=== PATIENT | female | born 1990 ===

== ENCOUNTER 2016-12-02 08:48 | Observation (INO) | payer MEDICAID ==
[2016-12-02 09:21] VITALS: BMI 40.7
[2016-12-02] MEDS ORDERED: Lidocaine 1% Inj (20ml) ONE (09:45)
[2016-12-02] MEDS ORDERED: Absorbable Gelatin Sponge Size 100 ONE (09:45)
[2016-12-02] MEDS ORDERED: Bupivacaine/Epi 0.25%-1:200,000 10 ml PF inj IJ ONE (09:45)
[2016-12-02] MEDS ORDERED: ceFAZolin IV 2 gm in Dextrose 1 GM/50 ML BAG IVPB ONE (09:46)
[2016-12-02] MEDS ORDERED: Propofol 10 mg/ml 1,000 MG/100 ML VIAL ONE ×2 (09:49)
[2016-12-02] MEDS ORDERED: Remifentanil 1 mg/3 ml Vial IV ONE ×2 (09:49→11:35)
[2016-12-02] MEDS ORDERED: Lactated Ringer's 1,000 ML IV ONE ×3 (09:55→16:00)
[2016-12-02] MEDS ORDERED: Midazolam 2 MG/2 ML VIAL ONE (09:58)
[2016-12-02] MEDS ORDERED: Propofol 10 mg/ml Inj (20 ML) ONE ×4 (09:59→12:51)
[2016-12-02] MEDS ORDERED: Succinylcholine Chloride 20 mg/ml Syr (5 ml) IV ONE (10:00)
[2016-12-02] MEDS ORDERED: Thrombin Topical 20,000 Intl Units Spray Kit TOP ONE (10:06)
[2016-12-02] MEDS: Thrombin Topical 5,000 IU Spray Kit ONE ×2 (10:44→12:20)
[2016-12-02] MEDS ORDERED: Morphine 4 MG/ML VIAL ONE ×2 (11:26→12:36)
[2016-12-02] MEDS ORDERED: Oxycodone/Acetaminophen 5/325 mg Tab PO PRN (13:23)
[2016-12-02] MEDS ORDERED: HYDROmorphone 0.5 mg/0.5 ml ISec IVP PRN (13:24)
[2016-12-02] MEDS ORDERED: HYDROmorphone 1 mg/ml ISec ONE ×2 (13:52→14:53)
--- NOTE | 2016-12-02 14:52 | PCM.SURG1 ---
Surgeon's Initial Post Op Note - Surgeon's Notes Surgeon: Dr. Gomez Toll Operator: Mirtha Mix Type of Anesthesia: General Endo Pre-Operative Diagnosis: completion of thyroidectomy Operative Findings: see operative reports Post-Operative Diagnosis: same Operation Performed: completion of thyroidectomy, left side Specimen/Specimens Removed: left thyroid Estimated Blood Loss: EBL {In ML}: 25 Blood Products Given: N/A Drains Used: No Drains Post-Op Condition: Good Date of Surgery/Procedure: 12/02/16 Time of Surgery/Procedure: 11:00
[2016-12-02] MEDS: Morphine 4 MG/ML VIAL IVP PRN (18:44)
[2016-12-02] MEDS ORDERED: Benzocaine/Menthol (Cepacol) Lozenge MT PRN (18:48)
[2016-12-02 21:00] VITALS: RESP 20
[2016-12-03] MEDS: Morphine 4 MG/ML VIAL IVP PRN ×3 (01:46→14:05)
[2016-12-03 07:19] LABS: HEMATOCRIT 35.4 % (34.0-47.0); MEAN CORPUSCULAR HEMOGLOBIN 28.6 pg (27.0-31.0); MEAN CORPUSCULAR HGB CONC 33.2 g/dL (33.0-37.0); MEAN PLATELET VOLUME 9.4 fL (7.2-11.7); RED CELL DISTRIBUTION WIDTH 13.6 % (11.5-14.5); WHITE BLOOD COUNT 11.8 K/uL (4.8-10.8)
[2016-12-03 07:26] LABS: CHLORIDE 99 mmol/L (98-107); POTASSIUM 3.7 mmol/L (3.6-5.2); SODIUM 137 mmol/L (132-148)
[2016-12-03 07:28] LABS: GFR AFRICAN-AMERICAN > 60
[2016-12-03 07:29] LABS: BLOOD UREA NITROGEN 10 mg/dL (7-17); CALCIUM 8.2 mg/dl (8.6-10.4); CARBON DIOXIDE 24 mmol/L (22-30); GLUCOSE,RANDOM 108 mg/dL (65-105); PHOSPHOROUS 4.1 mg/dL (2.5-4.5)
[2016-12-03 08:09] VITALS: O2SAT 96
--- NOTE | 2016-12-03 09:04 | OP ---
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 POSTOPERATIVE DIAGNOSES: 1. Papillary thyroid cancer of the right lobe. 2. Extensive postoperative adhesion due to the previous right lobectomy. PROCEDURES: 1. Done a completion thyroidectomy of left lobectomy. 2. Revision of the scar 8 x 2 cm size. 3. Intraoperative nerve monitoring. 4. Adhesiolysis. SURGEON: Torrey Gomez MD. FERN PICKER: HALLIE Manley. Mirtha was presented to the end of the procedure, helped in the prepping and draping during the dissection and closure of the wounds. SECOND FERN PICKER: Cale Cheek, PGY-1 resident. ANESTHESIA: General endotracheal tube anesthesia. ESTIMATED BLOOD LOSS: Around 20 mL. DRAIN: 15 [place] Zafar drain was placed. COMPLICATIONS: None. INTRAOPERATIVE FINDINGS: The patient had normal looking the left thyroid lobe. The patient had extensive postoperative adhesion in the midline as well as on the left side and it involved strap muscles and the sternocleidomastoid muscle as well as the platysma. INTRAOPERATIVE STEPS: This is a 26-year-old female who was diagnosed with papillary thyroid cancer after right thyroid lobectomy and the patient was consented for the completion thyroidectomy. Brought to the OR, placed supine on the operating table. After induction of the anesthesia, the patient was placed in the chair position, a shoulder roll was placed and the neck was extended and the neck and upper chest was prepped and draped. Revision of the old scar was done and after widening the scar, upper and lower subplatysmal flap was created and patient found to have extensive adhesion on the left side and the dissection was carried down to find the strap muscles in the midline and the strap muscle was also from the trachea and extensive adhesiolysis was done. The sternocleidomastoid were also fixed to the strap muscles. After proper dissection the thyroid lobe was identified and the strap muscles were divided, the thyroid lobe was retracted medially. The superior pole dissection was done and the superior pole was ligated in the different pedicles. The inferior pole vessel was also ligated and now the thyroid was moved medially and the recurrent laryngeal nerve was identified, the inferior thyroid artery and the middle thyroid vein were both ligated and the left thyroid lobe was dissected free from the trachea and the inferior and superior left parathyroid gland was dissected free from the thyroid lobe. After proper dissection the thyroid lobe was sent off the table for the pathology. Intraoperative monitoring was done. Recurrent laryngeal nerve was normal and after that the 15 [place] Zafar tube was placed. The strap muscles were approximated with 0 Vicryl interrupted suture, the platysma with 2-0 Vicryl, skin with a 4-0 Monocryl and a dry sterile dressing was applied. The patient tolerated the procedure well. Count of instrument was correct. There was no apparent complication. The patient was extubated in the OR, sent to the postanesthesia care unit in stable condition. Torrey Gomez MD cc: [id number] TT: 12/03/2016 09:03:11 jn MTDD
[2016-12-03] MEDS ORDERED: Enoxaparin 40 mg Syringe SC SCH (10:00)
[2016-12-03] MEDS ORDERED: Pneumococcal 23-Valent Vaccine IM ONE (10:00)
[2016-12-03 16:18] VITALS: BP 119/79; PULSE 95; TEMP 99.2
--- NOTE | 2016-12-03 17:24 | CP.PCM.DIS ---
Provider - Provider Date of Admission: 12/02/16 13:28 Attending physician: Torrey Gomez MD Time Spent in preparation of Discharge (in minutes): 30 Diagnosis - Discharge Diagnosis (1) S/P partial thyroidectomy Status: Acute Priority: High Onset Date: 05/27/16 Hospital Course - Lab Results Lab Results: Most Recent Lab Values WBC 11.8 K/uL (4.8-10.8) H 12/03/16 07:01 RBC 4.12 Mil/uL (3.80-5.20) 12/03/16 07:01 Hgb 11.8 g/dL (11.0-16.0) 12/03/16 07:01 Hct 35.4 % (34.0-47.0) 12/03/16 07:01 MCV 86.0 fL (81.0-99.0) 12/03/16 07:01 MCH 28.6 pg (27.0-31.0) 12/03/16 07:01 MCHC 33.2 g/dL (33.0-37.0) 12/03/16 07:01 RDW 13.6 % (11.5-14.5) 12/03/16 07:01 Plt Count 318 K/uL (130-400) 12/03/16 07:01 MPV 9.4 fL (7.2-11.7) 12/03/16 07:01 Sodium 137 mmol/L (132-148) 12/03/16 07:01 Potassium 3.7 mmol/L (3.6-5.2) 12/03/16 07:01 Chloride 99 mmol/L (98-107) 12/03/16 07:01 Carbon Dioxide 24 mmol/L (22-30) 12/03/16 07:01 Anion Gap 17 (10-20) 12/03/16 07:01 BUN 10 mg/dL (7-17) 12/03/16 07:01 Creatinine 0.5 MG/DL (0.7-1.2) L 12/03/16 07:01 Est GFR ( Amer) > 60 12/03/16 07:01 Est GFR (Non-Af Amer) > 60 12/03/16 07:01 Random Glucose 108 mg/dL (65-105) H 12/03/16 07:01 Calcium 8.2 mg/dl (8.6-10.4) L 12/03/16 07:01 Phosphorus 4.1 mg/dL (2.5-4.5) 12/03/16 07:01 Magnesium 2.0 mg/dL (1.6-2.3) 12/03/16 07:01 - Hospital Course Hospital Course: 26F presented to [facility] for thyroidectomy she did well post op and was able to be discharged on POD#1 after removing the mayelin drain. Discharge Exam - Head Exam Head Exam: ATRAUMATIC, NORMOCEPHALIC - Eye Exam Eye Exam: absent: Scleral icterus - Neck Exam Neck exam: Tenderness (at incision) Additional comments: Incision Dry and intact, drain removed - Respiratory Exam Respiratory Exam: NORMAL BREATHING PATTERN. absent: Respiratory Distress - Cardiovascular Exam Cardiovascular Exam: RRR, +S1, +S2 - GI/Abdominal Exam GI & Abdominal Exam: Soft. absent: Distended, Tenderness - Extremities Exam Extremities exam: normal capillary refill - Neurological Exam Neurological exam: Alert, Oriented x3 - Skin Skin Exam: Dry, Warm Discharge Plan - Follow Up Plan Condition: GOOD Disposition: HOME/ ROUTINE Additional Instructions: Follow up in [address] Gomez Regular diet. Call for fever more than 101 or pain uncontrolled by meds Can shower in 4 more days without covering dressing. Otherwise cover dressing for shower. Rx in chart.
== END 2016-12-03 18:45 | disposition home or self-care (01) ==
LOC: C.SDS 08:48 → C.6T 13:28
PROVIDERS: ADMIT Surgery Surgical Critical Care; ATTEND Surgery Surgical Critical Care
DX: C73 Malignant neoplasm of thyroid gland (principal)
CPT/HCPCS: 36415; 60240; 80048; 83735; 84100; 85027; 88305; 88307; 96365; 96372; 96375; 96376; G0378; J0690; J1170; J1650; J2001; J2250; J2270; J2405; J2704; J3010; J7120

== ENCOUNTER 2016-12-09 20:51 | Emergency (ER) | payer MEDICAID ==
[2016-12-09 20:52] VITALS: BMI 40.7
[2016-12-09 21:12] VITALS: TEMP 98.2
[2016-12-09] MEDS ORDERED: Sodium Chloride 0.9% 1,000 ML IV ONE (22:04)
[2016-12-09] MEDS ORDERED: Sodium Chloride 0.9% 1,000 ML ONE (22:41)
[2016-12-09 22:48] LABS: BASO # 0.1 K/uL (0.0-0.2); BASO % 0.9 % (0.0-2.0); EOS # 0.4 K/uL (0.0-0.7); EOS % 2.6 % (0.0-4.0); HEMATOCRIT 38.5 % (34.0-47.0); LYMPH # 3.7 K/uL (1.0-4.3); LYMPH % 26.5 % (20.0-40.0); MEAN CELL VOLUME 85.2 fL (81.0-99.0); MEAN CORPUSCULAR HEMOGLOBIN 28.7 pg (27.0-31.0); MEAN CORPUSCULAR HGB CONC 33.8 g/dL (33.0-37.0); MEAN PLATELET VOLUME 8.4 fL (7.2-11.7); MONO # 0.9 K/uL (0.0-0.8); MONO % 6.6 % (0.0-10.0); NRBC % 0.1 % (0.0-2.0); RED CELL DISTRIBUTION WIDTH 13.2 % (11.5-14.5)
--- NOTE | 2016-12-09 22:49 | C.PDOC ---
History Of Present Illness Patient is a 26 year old female who presents to the ER status post thyroidectomy on 12/[address] Gomez, for a complaint of pain and swelling to the surgical site. Patient states she feels more swelling then normal today. Patient has consumed 20 the percocet from post-op prescription. Denies fever or discharge from wound. Time Seen by Provider: 12/09/16 21:39 Chief Complaint (Nursing): Wound Check History Per: Patient History/Exam Limitations: no limitations Onset/Duration Of Symptoms: Hrs Current Symptoms Are (Timing): Still Present Location Of Injury: Anterior: Neck (Surgical site) Quality Of Symptoms: Painful, Swollen Recent travel outside of the [place]: No Past Medical History Reviewed: Historical Data, Nursing Documentation, Vital Signs Vital Signs: Last Vital Signs Temp 98.2 F 12/09/16 21:07 Pulse 93 H 12/10/16 00:17 Resp 18 12/10/16 00:17 BP 128/86 12/10/16 00:17 Pulse Ox 98 12/10/16 01:00 - Medical History PMH: Asthma (CHILDHOOD NO LONGER) - [facility] Procedures RESECTION OF RIGHT THYROID GLAND LOBE, OPEN APPROACH (05/27/16) Family History: States: Unknown Family Hx - Social History Hx Alcohol Use: No Hx Substance Use: No - Immunization History Hx Tetanus Toxoid Vaccination: No Hx Influenza Vaccination: No Hx Pneumococcal Vaccination: No Review Of Systems Constitutional: Negative for: Fever ENT: Positive for: Other (Neck swelling/pain at surgical site. No surgical site discharge.) Physical Exam - Physical Exam Appears: Well, Non-toxic Skin: Normal Color, Warm, Dry Head: Atraumatic, Normacephalic Oral Mucosa: Moist Throat: Normal, No Erythema, No Exudate Neck: Other (Lateral thyroidectomy scar. Site dry and intact, steri strips keeping wound closed. Mild left sided tenderness, no fluctuance.) Chest: Symmetrical, No Tenderness Cardiovascular: Rhythm Regular, No Murmur Respiratory: Normal Breath Sounds, No Rales, No Rhonchi, No Wheezing Gastrointestinal/Abdominal: Soft, No Tenderness Neurological/Psych: Oriented x3, Normal Speech, Normal Cognition Additional Physical Exam Comments: Due to obese neck, patient was difficult to examine. ED Course And Treatment - Laboratory Results Result Diagrams: 12/09/16 22:42 12/09/16 22:42 Lab Interpretation: Abnormal (mild leukocytosis, UA neg.) Urine POC: Negative O2 Sat by Pulse Oximetry: 98 - CT Scan/US CT of neck w/ IV contrast Other Rad Studies (CT/US): Read By Radiologist, Radiology Report Reviewed CT/US Interpretation: IMPRESSION: - Small areas of hyperdensity in the left thyroidectomy bed. Findings could represent residual. thyroid tissue, although small foci of hemorrhage are difficult to exclude. No evidence of a. large soft tissue hematoma. Recommend clinical correlation. - Findings suspicious for a small 2 x 1 cm fluid collection in the left anterior neck soft tissues,. abutting the thyroidectomy bed anteriorly. This could represent a seroma or resolving. hematoma. An infected fluid collection is not entirely excluded. Recommend clinical. correlation. Progress Note: ice, ivf, toradol. Discussed with Dr. Gomez at 10, agrees to CT and labs. Discussed with residential sales executive at 11, will evaluate. Reevaluation Time: 00:29 Reassessment Condition: Improved Medical Decision Making Medical Decision Making: post-op STS, no acute infection [id number] mild leukocytosis prob normal post-op Disposition Doctor Will See Patient In The: Office Counseled Patient/Family Regarding: Studies Performed, Diagnosis - Disposition Referrals: Torrey Gomez MD [Staff Provider] - Disposition: HOME/ ROUTINE Disposition Time: 01:00 Condition: GOOD Additional Instructions: ice packs 1/2 hour per hour, nothing hot Leave bandages in place until office visit Monday Motrin 400-600 mg every 6 hours as needed Pepcid 20 mg @ night to prevent stomach irritation from the Motrin Tramadol 50 mg (narcotic pain reliever) 1 tab every 4-6 hours as needed for excessive pain Follow-up with Dr. Coulter in his office on Monday. Call for an appointment. Prescriptions: Docusate [Colace] 100 mg PO BID #30 cap Famotidine [Pepcid] 20 mg PO HS #30 tab Ibuprofen [Motrin] 600 mg PO Q6H PRN #20 tab PRN Reason: Pain, Moderate (4-7) traMADol [Ultram] 50 mg PO Q6H PRN #20 tab PRN Reason: pain Instructions: Chronic Wound Care (ED) - Clinical Impression Clinical Impression: Encounter for postoperative wound check - Scribe Statement The provider has reviewed the documentation as recorded by the Scribe Bne Frye All medical record entries made by the Nenitaibyuli were at my direction and personally dictated by me. I have reviewed the chart and agree that the record accurately reflects my personal performance of the history, physical exam, medical decision making, and the department course for this patient. I have also personally directed, reviewed, and agree with the discharge instructions and disposition.
[2016-12-09 23:06] LABS: CHLORIDE 97 mmol/L (98-107); POTASSIUM 4.1 mmol/L (3.6-5.2); SODIUM 139 mmol/L (132-148)
[2016-12-09 23:08] LABS: GFR AFRICAN-AMERICAN > 60; RBC URINE 3 /hpf (0-3); URINE BILIRUBIN NEGATIVE (NEGATIVE); URINE BLOOD NEGATIVE (NEGATIVE); URINE COLOR Yellow (YELLOW); URINE GLUCOSE (UA) NORMAL (Normal); URINE KETONE NEGATIVE (NEGATIVE); URINE LEUKOCYTE ESTERASE NEG Leu/uL (Negative); URINE PROTEIN NEGATIVE (NEGATIVE); URINE UROBILINOGEN NORMAL mg/dL (0.2-1.0)
[2016-12-09 23:09] LABS: ALB/GLOB RATIO 1.3 (1.0-2.1); ALKALINE PHOSPHATASE 70 U/L (38-126); ALT/SGPT 21 U/L (9-52); AST/SGOT 17 U/L (14-36); BILIRUBIN,TOTAL 0.4 mg/dL (0.2-1.3); BLOOD UREA NITROGEN 12 mg/dL (7-17); CARBON DIOXIDE 26 mmol/L (22-30); GLUCOSE,RANDOM 100 mg/dL (65-105); TOTAL PROTEIN 7.7 g/dL (6.3-8.3)
[2016-12-09 23:10] LABS: CALCIUM 8.7 mg/dl (8.6-10.4)
[2016-12-09] MEDS ORDERED: Iohexol 350mg/ml 100 ML ONE (23:42)
[2016-12-10 00:17] VITALS: BP 128/86; PULSE 93; RESP 18
[2016-12-10 00:32] VITALS: O2SAT 98
--- NOTE | 2016-12-10 00:58 | CT ---
EXAM: CT Neck With Intravenous Contrast CLINICAL HISTORY: 26 years old, female; Pain; Neck pain and painful swallowing; Prior surgery; Surgery type: Lt, side thyroidectomy; Additional info: L-side thyroidectomy 12/02, + sts, ? phlegmon TECHNIQUE: Axial computed tomography images of the neck with intravenous contrast. This CT exam was performed using one or more of the following dose reduction techniques: automated exposure control, adjustment of the mA and/or kV according to patient size, and/or use of iterative reconstruction technique. Coronal and sagittal reformatted images were created and reviewed. CONTRAST: 100 mL of [id number] administered intravenously. EXAM DATE/TIME: 12/09/2016 9:57 PM COMPARISON: No relevant prior studies available. FINDINGS: NASOPHARYNX: No acute abnormality of the adenoidal/nasopharyngeal tonsils identified. OROPHARYNX: No acute abnormality of the bilateral palatine tonsils identified. No acute abnormality of the tongue base identified. HYPOPHARYNX: No acute abnormality of the vallecula or piriform sinuses identified. LARYNX: No acute abnormality of the epiglottis identified. No acute abnormality of the vocal cords identified. TRACHEA: Visualized portions of the trachea appear patent. RETROPHARYNGEAL SPACE: No evidence of prevertebral/retropharyngeal fluid or fluid collection. SUBMANDIBULAR/PAROTID GLANDS: No acute abnormality of the parotid or submandibular glands identified. THYROID: Findings compatible with the given history of recent left thyroidectomy. There are multiple surgical clips in the left thyroidectomy bed. There are small areas of high density seen in the left thyroidectomy bed, abutting the surgical clips, measuring up to 1 cm in size, image 56/series 2. BONES/JOINTS: No acute fractures or other acute bony abnormality noted. SOFT TISSUES: Best seen on image 59 of series 2, there is a subtle 2 x 1 cm focal area of low density in the deep soft tissues of the anterior neck, abutting the thyroidectomy bed anteriorly. This has an irregular shape, and is suspicious for a small fluid collection. It does not contain gas. Soft tissue swelling and diffuse subcutaneous fat infiltration are seen in the nearby anterior neck soft tissues, at the level of the thyroidectomy bed. There is no evidence of diffuse soft tissue gas. VASCULATURE: No acute abnormality of the major neck vessels is seen. . LYMPH NODES: No evidence of diffuse lymphadenopathy. LUNG APICES: Small left pleural effusion is seen, in the left lung apex. IMPRESSION: - Small areas of hyperdensity in the left thyroidectomy bed. Findings could represent residual thyroid tissue, although small foci of hemorrhage are difficult to exclude. No evidence of a large soft tissue hematoma. Recommend clinical correlation. - Findings suspicious for a small 2 x 1 cm fluid collection in the left anterior neck soft tissues, abutting the thyroidectomy bed anteriorly. This could represent a seroma or resolving hematoma. An infected fluid collection is not entirely excluded. Recommend clinical correlation. - Small left pleural effusion. - See above for remaining findings.
== END 2016-12-10 01:14 | disposition home or self-care (01) ==
LOC: C.ER 20:51
DX: Z48.01 Encounter for change or removal of surgical wound dressing (principal)
CPT/HCPCS: 70491; 80053; 81001; 84703; 85025; 96361; 96374; 99285; J1885; J7040; Q9967

== ENCOUNTER 2017-01-27 13:01 | Emergency (ER) | payer MEDICAID ==
[2017-01-27 13:01] VITALS: BMI 40.7
[2017-01-27 13:17] VITALS: TEMP 98.4
[2017-01-27 14:26] LABS: BASO # 0.1 K/uL (0.0-0.2); BASO % 0.9 % (0.0-2.0); EOS # 0.2 K/uL (0.0-0.7); EOS % 2.1 % (0.0-4.0); HEMATOCRIT 37.9 % (34.0-47.0); LYMPH # 2.4 K/uL (1.0-4.3); LYMPH % 27.7 % (20.0-40.0); MEAN CELL VOLUME 86.5 fL (81.0-99.0); MEAN CORPUSCULAR HEMOGLOBIN 28.4 pg (27.0-31.0); MEAN CORPUSCULAR HGB CONC 32.8 g/dL (33.0-37.0); MEAN PLATELET VOLUME 8.9 fL (7.2-11.7); MONO # 0.6 K/uL (0.0-0.8); MONO % 6.8 % (0.0-10.0); NRBC % 0.1 % (0.0-2.0); RED CELL DISTRIBUTION WIDTH 13.7 % (11.5-14.5); WHITE BLOOD COUNT 8.8 K/uL (4.8-10.8)
[2017-01-27 14:42] LABS: CHLORIDE 102 mmol/L (98-107); SODIUM 137 mmol/L (132-148)
[2017-01-27 14:43] LABS: POTASSIUM 4.1 mmol/L (3.6-5.2)
[2017-01-27 14:45] LABS: ALB/GLOB RATIO 1.2 (1.0-2.1); ALKALINE PHOSPHATASE 67 U/L (38-126); ALT/SGPT 20 U/L (9-52); AST/SGOT 19 U/L (14-36); BILIRUBIN,TOTAL 0.6 mg/dL (0.2-1.3); BLOOD UREA NITROGEN 9 mg/dL (7-17); CALCIUM 9.1 mg/dl (8.6-10.4); CARBON DIOXIDE 25 mmol/L (22-30); GFR AFRICAN-AMERICAN > 60; GLUCOSE,RANDOM 89 mg/dL (65-105); TOTAL PROTEIN 7.5 g/dL (6.3-8.3)
[2017-01-27 15:15] LABS: THYROID STIMULATING HORMONE 1.44 mIU/L (0.46-4.68)
--- NOTE | 2017-01-27 15:35 | C.PDOC ---
History Of Present Illness 26 year old female presents to ED with complaints of numbness and tingling sensation to bilateral hands for 1 month and pain when she clenches fists. Additionally patient complains of itchy rash that started on her back and has no spread to chest and neck. Patient believes the cause of her symptoms is increase in her levothyroxine medication to 200mcg. She denies any injury, weakness, fatigue, SOB, chest pain, headache or dizziness. Time Seen by Provider: 01/27/17 13:32 Chief Complaint (Nursing): Upper Extremity Problem/Injury History Per: Patient History/Exam Limitations: no limitations Onset/Duration Of Symptoms: Days Current Symptoms Are (Timing): Still Present Severity: Mild Recent travel outside of the [place]: No Past Medical History Reviewed: Historical Data, Nursing Documentation, Vital Signs Vital Signs: Last Vital Signs Temp 98.4 F 01/27/17 13:15 Pulse 72 01/27/17 15:47 Resp 18 01/27/17 15:47 BP 128/72 01/27/17 15:47 Pulse Ox 99 01/27/17 16:24 - Medical History PMH: Asthma (CHILDHOOD NO LONGER), Hypothyroidism, Malignancy (Thyroid) - [facility] Procedures RESECTION OF RIGHT THYROID GLAND LOBE, OPEN APPROACH (05/27/16) Family History: States: Unknown Family Hx - Social History Hx Alcohol Use: No Hx Substance Use: No - Immunization History Hx Tetanus Toxoid Vaccination: No Hx Influenza Vaccination: No Hx Pneumococcal Vaccination: No Review Of Systems Constitutional: Negative for: Fever, Chills, Weakness Cardiovascular: Negative for: Chest Pain Respiratory: Negative for: Shortness of Breath Skin: Positive for: Rash (itchy rash to back, chest and neck) Neurological: Positive for: Numbness (bilateral hands). Negative for: Headache , Dizziness Physical Exam - Physical Exam Appears: Non-toxic, No Acute Distress Skin: Warm, Dry, Other (scaly annular lesions on erythematous base to left anterior neck, left chest wall and right midback) Head: Atraumatic, Normacephalic Eye(s): bilateral: Normal Inspection, PERRL, EOMI Nose: Normal Oral Mucosa: Moist Neck: Normal, Normal ROM, Supple Chest: Symmetrical Cardiovascular: Rhythm Regular, No Murmur Respiratory: Normal Breath Sounds, No Rales, No Rhonchi, No Wheezing Gastrointestinal/Abdominal: Normal Exam, Soft, No Tenderness Extremity: Bilateral: Atraumatic, Normal Color And Temperature, Normal ROM Neurological/Psych: Oriented x3, Normal Speech, Normal Motor, Normal Sensation Gait: Steady ED Course And Treatment - Laboratory Results Result Diagrams: 01/27/17 14:21 01/27/17 14:21 Lab Interpretation: No Acute Changes O2 Sat by Pulse Oximetry: 99 (room air) Pulse Ox Interpretation: Normal Medical Decision Making Medical Decision Making: Impression: numbness and tingling to hands, rash to back, neck and chest Prior records reviewed patient had thyroidectomy on 12/[address] Gomez rash is consistent with tinea Labs ordered to check for thyroid function and any electrolyte abnormality Labs reviewed and unremarkable, no leukocytosis or electrolyte abnormality, thyroid normal Patient reevaluated and remains well and in no acute distress. Patient advised to follow up with telephone interviewer and PCP. Will prescribe cream for rash. Disposition Counseled Patient/Family Regarding: Diagnosis, Need For Followup, Rx Given - Disposition Referrals: Jesús Torres MD [Staff Provider] - Disposition: HOME/ ROUTINE Disposition Time: 15:32 Condition: STABLE Additional Instructions: Apply cream twice daily to rash for 1-2 weeks Continue with your medication as prescribed for thyroid. Your lab results today were normal, and thyroid function is normal Please follow up with your primary doctor or telephone interviewer Prescriptions: Ketoconazole 2% Cr [Nizoral] 15 applic EXT BID #1 tube Instructions: Tinea Corporis (ED), Paresthesia (ED) - POA Present On Arrival: None - Clinical Impression Clinical Impression: Paresthesia of upper extremity, Normal thyroid function test, Tinea corporis - PA / CUP MACHINE OPERATOR / Resident Statement MD/DO has reviewed & agrees with the documentation as recorded. - Scribe Statement The provider has reviewed the documentation as recorded by the Lori Saleh All medical record entries made by the Lori were at my direction and personally dictated by me. I have reviewed the chart and agree that the record accurately reflects my personal performance of the history, physical exam, medical decision making, and the department course for this patient. I have also personally directed, reviewed, and agree with the discharge instructions and disposition.
[2017-01-27 15:47] VITALS: BP 128/72; PULSE 72; RESP 18
[2017-01-27 15:59] VITALS: O2SAT 99
== END 2017-01-27 15:48 | disposition home or self-care (01) ==
LOC: C.ER 13:01
DX: R20.9 Unspecified disturbances of skin sensation (principal); B35.4 Tinea corporis

== ENCOUNTER 2017-05-02 08:57 | Emergency (ER) | payer MEDICAID ==
[2017-05-02 08:57] VITALS: BMI 40.7
[2017-05-02 09:04] VITALS: TEMP 97.9
--- NOTE | 2017-05-02 11:11 | C.PDOC ---
History Of Present Illness 26 y/o female presents to ED with complaints of erythema patches on right and left leg since 04/26/17. Patient states patches started as small and on right leg but are now on both legs. Patient denies recent travel, fever, chills, or any other complaints at this time. Time Seen by Provider: 05/02/17 09:47 Chief Complaint (Nursing): Abnormal Skin Integrity History Per: Patient History/Exam Limitations: no limitations Onset/Duration Of Symptoms: Days Current Symptoms Are (Timing): Still Present Location Of Injury: Right: Leg, Left: Leg Past Medical History Reviewed: Historical Data, Nursing Documentation, Vital Signs Vital Signs: Last Vital Signs Temp 97.9 F 05/02/17 09:02 Pulse 69 05/02/17 11:25 Resp 17 05/02/17 11:25 BP 124/72 05/02/17 11:25 Pulse Ox 99 05/02/17 11:56 - Medical History PMH: Asthma (CHILDHOOD NO LONGER), Hypothyroidism, Malignancy (Thyroid) Denies: Chronic Kidney Disease Surgical History: No Surg Hx - [facility] Procedures RESECTION OF RIGHT THYROID GLAND LOBE, OPEN APPROACH (05/27/16) Family History: States: Unknown Family Hx - Social History Hx Alcohol Use: No Hx Substance Use: No - Immunization History Hx Tetanus Toxoid Vaccination: No Hx Influenza Vaccination: No Hx Pneumococcal Vaccination: No Review Of Systems Except As Marked, All Systems Reviewed And Found Negative. Constitutional: Negative for: Fever, Chills Gastrointestinal: Negative for: Nausea, Vomiting Skin: Positive for: Rash Physical Exam - Physical Exam Appears: Non-toxic, No Acute Distress Skin: Warm, Dry, Rash (Erythema and Large patches with cellulite patches around on both legs) Head: Atraumatic, Normacephalic Eye(s): bilateral: Normal Inspection Oral Mucosa: Moist Neck: Normal ROM, Supple Chest: Symmetrical Cardiovascular: Rhythm Regular, No Murmur Respiratory: Normal Breath Sounds, No Rales, No Rhonchi, No Wheezing Neurological/Psych: Oriented x3 ED Course And Treatment O2 Sat by Pulse Oximetry: 99 (RA) Pulse Ox Interpretation: Normal Disposition - Disposition Disposition: HOME/ ROUTINE Disposition Time: 11:15 Condition: STABLE Additional Instructions: Follow up with Machine Set Up Operator within 1-2 days. Return to ED if feel worse. Prescriptions: DiphenhydrAMINE [Benadryl] 25 mg PO .Q4-6 H #30 cap Clotrimazole/Betamethasone [Lotrisone] 1 appl EXT BID #3 tube Famotidine [Pepcid] 20 mg PO BID #20 tab Instructions: Acute Rash (ED) Forms: [facility] ([place]) - Clinical Impression Clinical Impression: Rash - PA / LOADING SUPERVISOR / Resident Statement MD/DO has reviewed & agrees with the documentation as recorded. - Scribe Statement The provider has reviewed the documentation as recorded by the Nenitaibyuli Barcenas All medical record entries made by the Lori were at my direction and personally dictated by me. I have reviewed the chart and agree that the record accurately reflects my personal performance of the history, physical exam, medical decision making, and the department course for this patient. I have also personally directed, reviewed, and agree with the discharge instructions and disposition.
[2017-05-02 11:26] VITALS: BP 124/72; PULSE 69; RESP 17
[2017-05-02 11:45] VITALS: O2SAT 99
== END 2017-05-02 11:30 | disposition home or self-care (01) ==
LOC: C.ER 08:57
DX: R21 Rash and other nonspecific skin eruption (principal)

== ENCOUNTER 2018-07-05 18:58 | Emergency (ER) | payer MEDICAID, OTHER ==
[2018-07-05 18:59] VITALS: BMI 40.7
--- NOTE | 2018-07-05 20:45 | C.PDOC ---
History Of Present Illness 27 y/o female presents to the ER complaining of productive cough, sore throat, and chest congestion which has been present for the past 2.5 weeks. Patient states that she was evaluated by her PMD. Patient reports that she was prescribed Amoxicillin for throat infection and cough syrup.She notes that she took the medications without relief. Denies having fever, chills, and SOB. Time Seen by Provider: 07/05/18 19:44 Chief Complaint (Nursing): Cough, Cold, Congestion History Per: Patient History/Exam Limitations: no limitations Onset/Duration Of Symptoms: Days Current Symptoms Are (Timing): Still Present Severity: Moderate Past Medical History Reviewed: Historical Data, Nursing Documentation, Vital Signs Vital Signs: Last Vital Signs Temp Pulse 110 H 07/05/18 19:10 Resp 20 07/05/18 19:10 BP 141/101 H 07/05/18 19:10 Pulse Ox 100 07/05/18 19:10 - Medical History PMH: Asthma (CHILDHOOD NO LONGER), HTN, Hypothyroidism, Malignancy (Thyroid) Denies: Chronic Kidney Disease Other Surgeries: Hx of surgeries - [facility] Procedures RESECTION OF RIGHT THYROID GLAND LOBE, OPEN APPROACH (05/27/16) Family History: States: No Known Family Hx - Social History Hx Alcohol Use: No Hx Substance Use: No - Immunization History Hx Tetanus Toxoid Vaccination: No Hx Influenza Vaccination: No Hx Pneumococcal Vaccination: No Review Of Systems Except As Marked, All Systems Reviewed And Found Negative. Constitutional: Negative for: Fever, Chills ENT: Positive for: Throat Pain Cardiovascular: Positive for: Other (chest congestion). Negative for: Chest Pain Respiratory: Positive for: Cough. Negative for: Shortness of Breath Gastrointestinal: Negative for: Nausea, Vomiting Physical Exam - Physical Exam Appears: Non-toxic, No Acute Distress Skin: Normal Color, Warm, Dry Head: Atraumatic, Normacephalic Eye(s): bilateral: Normal Inspection Ear(s): Bilateral: Normal Nose: Normal Oral Mucosa: Moist Throat: Normal, No Erythema, No Exudate Neck: Supple Chest: Symmetrical Cardiovascular: Rhythm Regular Respiratory: Normal Breath Sounds, No Rales, No Rhonchi, No Wheezing Neurological/Psych: Oriented x3, Normal Speech ED Course And Treatment O2 Sat by Pulse Oximetry: 100 (RA) Pulse Ox Interpretation: Normal Progress Note: Pt is in no resp distress, VSS. CXR wnl and pt advised to follow up with PMD Medical Decision Making Medical Decision Making: Plan: --CXR Disposition - Disposition Referrals: Jesús Torres MD [Staff Provider] - Disposition: HOME/ ROUTINE Disposition Time: 03:44 Condition: GOOD Additional Instructions: Increase PO fluids Take medications as directed Return to ER if worse Prescriptions: Benzonatate [Tessalon Perles] 200 mg PO TID #14 sgl Cetirizine HCl [Zyrtec] 10 mg PO DAILY #14 capsule Instructions: Upper Respiratory Infection (ED) - Clinical Impression Clinical Impression: Upper respiratory infection - PA / [employer] / Resident Statement MD/DO has reviewed & agrees with the documentation as recorded. - Scribe Statement The provider has reviewed the documentation as recorded by the Scribe Madeleine Rod Provider Attestation All medical record entries made by the Scribe were at my direction and personally dictated by me. I have reviewed the chart and agree that the record accurately reflects my personal performance of the history, physical exam, medical decision making, and the department course for this patient. I have also personally directed, reviewed, and agree with the discharge instructions and disposition.
[2018-07-05 21:03] VITALS: BP 136/92; PULSE 95; RESP 18; TEMP 98
[2018-07-06 03:44] VITALS: O2SAT 100
--- NOTE | 2018-07-06 10:26 | RAD ---
Date of service: 07/05/2018 HISTORY: chest congestion, cough COMPARISON: Comparison chest 10/20/2016. TECHNIQUE: Chest PA and lateral FINDINGS: LUNGS: No active pulmonary disease. PLEURA: No significant pleural effusion identified. No pneumothorax apparent. CARDIOVASCULAR: No aortic atherosclerotic calcification present. Normal cardiac size. No pulmonary vascular congestion. OSSEOUS STRUCTURES: No significant abnormalities. VISUALIZED UPPER ABDOMEN: Normal. OTHER FINDINGS: None. IMPRESSION: No active disease.
== END 2018-07-05 21:03 | disposition home or self-care (01) ==
LOC: C.ER 18:58
DX: J06.9 Acute upper respiratory infection, unspecified (principal)

== ENCOUNTER 2018-09-12 13:59 | Emergency (ER) | payer OTHER ==
[2018-09-12 13:59] VITALS: BMI 40.7
[2018-09-12 14:26] VITALS: O2SAT 100
[2018-09-12 15:14] LABS: BASO # 0.1 K/uL (0.0-0.2); BASO % 1.1 % (0.0-2.0); EOS # 0.2 K/uL (0.0-0.7); EOS % 2.1 % (0.0-4.0); LYMPH # 2.7 K/uL (1.0-4.3); LYMPH % 29.1 % (20.0-40.0); MEAN CELL VOLUME 86.7 fL (81.0-99.0); MEAN CORPUSCULAR HEMOGLOBIN 29.1 pg (27.0-31.0); MEAN CORPUSCULAR HGB CONC 33.6 g/dL (33.0-37.0); MEAN PLATELET VOLUME 8.8 fL (7.2-11.7); MONO # 0.6 K/uL (0.0-0.8); MONO % 6.8 % (0.0-10.0); NEUT # 5.7 K/uL (1.8-7.0); NEUT % 60.9 % (50.0-75.0); NRBC % 0.1 % (0.0-2.0); RBC 4.46 Mil/uL (3.80-5.20); RED CELL DISTRIBUTION WIDTH 14.1 % (11.5-14.5); WHITE BLOOD COUNT 9.3 K/uL (4.8-10.8)
[2018-09-12 15:24] LABS: SQUAMOUS EPITHIAL 7 /hpf (0-5); URINE BACTERIA RARE (<OCC); URINE BILIRUBIN NEGATIVE (NEGATIVE); URINE BLOOD 3+ (NEGATIVE); URINE CLARITY Hazy (Clear); URINE COLOR Yellow (YELLOW); URINE GLUCOSE (UA) NORMAL (Normal); URINE LEUKOCYTE ESTERASE NEG Leu/uL (Negative); URINE PROTEIN NEGATIVE (NEGATIVE)
--- NOTE | 2018-09-12 15:35 | C.PDOC ---
History Of Present Illness 28 y/o female,w/PMhx of ovarian cysts, presents to the ER complaining of cramping LLQ abdominal pain which has been present for the past 2-3 days. Patient states that the pain radiates to the back. Patient reports that she has some vaginal spotting.She notes that she has history of irregular periods and her LMP was in July 2018. She took 2 tests at home, 1 test was positive and 1 test was negative.Denies having fever, chills, nausea,vomiting, dysuria, and hematuria. Time Seen by Provider: 09/12/18 14:42 Chief Complaint (Nursing): Female Genitourinary History Per: Patient History/Exam Limitations: no limitations Onset/Duration Of Symptoms: Days Current Symptoms Are (Timing): Still Present Severity: Moderate Past Medical History Reviewed: Historical Data, Nursing Documentation, Vital Signs Vital Signs: Last Vital Signs Temp 98.2 F 09/12/18 14:22 Pulse 79 09/12/18 14:22 Resp 18 09/12/18 14:22 BP 139/97 H 09/12/18 14:22 Pulse Ox 100 09/12/18 14:22 - Medical History PMH: Asthma (CHILDHOOD NO LONGER), HTN, Hypothyroidism, Malignancy (Thyroid) Denies: Chronic Kidney Disease Other Surgeries: Hx of surgeries - [facility] Procedures RESECTION OF RIGHT THYROID GLAND LOBE, OPEN APPROACH (05/27/16) Family History: States: No Known Family Hx - Social History Hx Alcohol Use: No Hx Substance Use: No - Immunization History Hx Tetanus Toxoid Vaccination: No Hx Influenza Vaccination: No Hx Pneumococcal Vaccination: No Review Of Systems Constitutional: Negative for: Fever, Chills Gastrointestinal: Positive for: Abdominal Pain. Negative for: Nausea, Vomiting Genitourinary: Positive for: Vaginal Bleeding. Negative for: Dysuria, Hematuria Physical Exam - Physical Exam Appears: Non-toxic, No Acute Distress Skin: Normal Color, Warm, Dry Head: Atraumatic, Normacephalic Eye(s): bilateral: Normal Inspection Nose: Normal Oral Mucosa: Moist Neck: Supple Chest: Symmetrical Cardiovascular: Rhythm Regular Respiratory: Normal Breath Sounds, No Rales, No Rhonchi, No Wheezing Gastrointestinal/Abdominal: Normal Exam, Soft, No Tenderness, No Guarding, No Rebound Neurological/Psych: Oriented x3, Normal Speech ED Course And Treatment - Laboratory Results Result Diagrams: 09/12/18 15:10 09/12/18 15:10 Lab Results: Urine Color Yellow (YELLOW) 09/12/18 15:10 Urine Clarity Hazy (Clear) 09/12/18 15:10 Urine pH 5.0 (5.0-8.0) 09/12/18 15:10 Ur Specific [place] 1.030 (1.003-1.030) 09/12/18 15:10 Urine Protein Negative mg/dL (NEGATIVE) 09/12/18 15:10 Urine Glucose (UA) Normal mg/dL (Normal) 09/12/18 15:10 Urine Ketones Negative mg/dL (NEGATIVE) 09/12/18 15:10 Urine Blood 3+ (NEGATIVE) H 09/12/18 15:10 Urine Nitrate Negative (NEGATIVE) 09/12/18 15:10 Urine Bilirubin Negative (NEGATIVE) 09/12/18 15:10 Urine Urobilinogen 2.0 mg/dL (0.2-1.0) H 09/12/18 15:10 Ur Leukocyte Esterase Neg Carmella/uL (Negative) 09/12/18 15:10 Urine WBC (Auto) 2 /hpf (0-5) 09/12/18 15:10 Urine RBC (Auto) 33 /hpf (0-3) H 09/12/18 15:10 Ur Squamous Epith Cells 7 /hpf (0-5) H 09/12/18 15:10 Urine Bacteria Rare (<OCC) 09/12/18 15:10 Lab Interpretation: Normal O2 Sat by Pulse Oximetry: 100 (RA) Pulse Ox Interpretation: Normal - CT Scan/US US Other Rad Studies (CT/US): Read By Radiologist, Radiology Report Reviewed CT/US Interpretation: Date of service: 09/12/2018. HISTORY: LLQ abd pain. COMPARISON: None available. TECHNIQUE: Transabdominal and transvaginal. FINDINGS: UTERUS: Measures 7.6 x 4.4 x 4.7 cm. Retroverted. No fibroid or other mass lesion seen. ENDOMETRIUM: Measures 6 mm in diameter. Unremarkable. CERVIX: No cervical abnormality identified. RIGHT OVARY: Measures 3.3 x 1.8 x 2.3 cm. No solid mass. Normal flow. LEFT OVARY: Measures 3.5 x 1.7 x 2.0 cm. No solid mass. Normal flow. FREE FLUID: No significant free fluid noted. OTHER FINDINGS: None. IMPRESSION: Unremarkable examination. Reevaluation Time: 17:37 Reassessment Condition: Improved (Patient remains comfortable and is in no distress.) Medical Decision Making Medical Decision Making: Plan: --Labs --UA --US- Pelv. Disposition Counseled Patient/Family Regarding: Studies Performed, Diagnosis, Need For Followup, Rx Given - Disposition Referrals: [facility] [Outside] Disposition: HOME/ ROUTINE Disposition Time: 17:39 Condition: STABLE Prescriptions: Naproxen [Naprosyn] 1 tab PO BID PRN #25 tab PRN Reason: Pain Instructions: Acute Pelvic Pain (DC) Forms: [employer] (Yoruba) - Clinical Impression Clinical Impression: Irregular menses, Pelvic pain - Scribe Statement The provider has reviewed the documentation as recorded by the Lori Rod Provider Attestation: All medical record entries made by the Nenitaibe were at my direction and personally dictated by me. I have reviewed the chart and agree that the record accurately reflects my personal performance of the history, physical exam, medical decision making, and the department course for this patient. I have also personally directed, reviewed, and agree with the discharge instructions and disposition.
[2018-09-12 15:36] VITALS: RESP 20
[2018-09-12 15:41] LABS: ALB/GLOB RATIO 1.4 (1.0-2.1); ALBUMIN 4.7 g/dL (3.5-5.0); ALT/SGPT 19 U/L (9-52); AST/SGOT 28 U/L (14-36); BLOOD UREA NITROGEN 12 mg/dL (7-17); CALCIUM 9.1 mg/dl (8.6-10.4); GFR NON-AFRICAN AMERICAN > 60
--- NOTE | 2018-09-12 17:23 | US ---
Date of service: 09/12/2018 HISTORY: LLQ abd pain COMPARISON: None available. TECHNIQUE: Transabdominal and transvaginal FINDINGS: UTERUS: Measures 7.6 x 4.4 x 4.7 cm. Retroverted. No fibroid or other mass lesion seen. ENDOMETRIUM: Measures 6 mm in diameter. Unremarkable. CERVIX: No cervical abnormality identified. RIGHT OVARY: Measures 3.3 x 1.8 x 2.3 cm. No solid mass. Normal flow. LEFT OVARY: Measures 3.5 x 1.7 x 2.0 cm. No solid mass. Normal flow. FREE FLUID: No significant free fluid noted. OTHER FINDINGS: None. IMPRESSION: Unremarkable examination.
[2018-09-12 18:28] VITALS: BP 124/86; PULSE 80; TEMP 98.4
== END 2018-09-12 18:00 | disposition home or self-care (01) ==
LOC: C.ER 13:59
DX: N92.6 Irregular menstruation, unspecified (principal); R10.2 Pelvic and perineal pain; I10 Essential (primary) hypertension; E03.9 Hypothyroidism, unspecified